=== PATIENT | female | born 1975 | race Native Hawaiian/Other Pacific Islander ===

== ENCOUNTER 2019-10-09 18:54 | Emergency (ER) | payer OTHER ==
[~2019-10-09] VITALS: Ht 157.5 cm; Wt 101.6 kg
[2019-10-09 19:08] VITALS: TEMP 98.1
[2019-10-09] MEDS ORDERED: IBU800 MG PO (19:09)
[2019-10-09 20:12] LABS: PLATELET COUNT 349 K/uL (152-353)
[2019-10-09 20:24] LABS: POTASSIUM 3.2 mmol/L (3.6-5.2); SODIUM 140 mmol/L (136-145)
[2019-10-09 23:34] VITALS: BP 100/58
== END 2019-10-09 23:34 | disposition home or self-care (01) ==
LOC: ED 18:54
PROVIDERS: Emergency Medicine
DX: R07.89 Other chest pain (principal)
CPT/HCPCS: 36415; 80053; 82550; 82553; 84484; 85027; 93005; 99284

== ENCOUNTER 2022-11-15 10:24 | Outpatient (CLI) | payer OTHER ==
[~2022-11-15 10:24] MED LIST: IBU800 MG PO
== END 2022-11-15 22:19 | disposition home or self-care (01) ==
LOC: US 10:24
PROVIDERS: ATTEND Nurse Practitioner
DX: R10.11 Right upper quadrant pain (principal)